=== PATIENT | male | born 1985 | race Caucasian/White ===

== ENCOUNTER 2022-05-29 20:27 | Emergency (ER) | payer OTHER | END 2022-05-29 21:33 | disposition home or self-care (01) | LOC: JP.ED 20:27 | DX: T81.30XA Disruption of wound, unspecified, initial encounter (principal); F17.210 Nicotine dependence, cigarettes, uncomplicated; Z88.4 Allergy status to anesthetic agent; Z86.16 Personal history of COVID-19 | CPT/HCPCS: 99282 ==

== ENCOUNTER 2023-01-26 08:08 | Emergency (ER) | payer OTHER ==
[2023-01-26] MEDS ORDERED: Sodium Chloride 0.9% 10 ML Syringe FLUSH PRN (08:58)
[2023-01-26] MEDS ORDERED: Sodium Chloride 0.9% 10 ML Syringe FLUSH ONE (09:23)
[2023-01-26 09:29] LABS: ESTIMATED GFR 88 mL/min (>60)
[2023-01-26] MEDS ORDERED: Sodium Chloride 0.9% 50 ML IV SCH (09:30)
[2023-01-26] MEDS ORDERED: Iopamidol 612 MG/ML 100 ML Bottle IV SCH (09:30)
== END 2023-01-26 10:26 | disposition home or self-care (01) ==
LOC: JP.ED 08:08
DX: K92.1 Melena (principal); Z88.4 Allergy status to anesthetic agent; Z72.0 Tobacco use
CPT/HCPCS: 36415; 74177; 80053; 85025; 85610; 85730; 86140; 99284; J3490; Q9967; 99283

== ENCOUNTER 2023-01-30 08:33 | Day surgery (SDC) | payer OTHER ==
[2023-01-30] MEDS ORDERED: Midazolam 1 MG/ML 2 ML SDV ONE (08:44)
[2023-01-30] MEDS ORDERED: Propofol 200 MG/20 ML SDV ONE ×2 (08:44→10:05)
[2023-01-30] MEDS ORDERED: fentaNYL 50 MCG/ML SDV ONE (08:44)
[2023-01-30] MEDS ORDERED: Lactated Ringers 1,000 ML IV SCH (10:00)
== END 2023-01-30 11:47 | disposition home or self-care (01) ==
LOC: JP.SDS 08:33
PROVIDERS: ATTEND Family Medicine
DX: K51.40 Inflammatory polyps of colon without complications (principal); K29.50 Unspecified chronic gastritis without bleeding; K52.9 Noninfective gastroenteritis and colitis, unspecified; G43.909 Migraine, unspecified, not intractable, without status migrainosus; Z83.79 Family history of other diseases of the digestive system; Z88.1 Allergy status to other antibiotic agents; Z88.8 Allergy status to other drugs, medicaments and biological substances
CPT/HCPCS: 43239; 45380; J2250; J2704; J3010; J7120